=== PATIENT | male | born 1995 | race Caucasian/White ===

== ENCOUNTER 2017-06-09 10:08 | Emergency (ER) | payer OTHER ==
[~2017-06-09] VITALS: Ht 175.3 cm; Wt 63.5 kg
--- NOTE | 2017-06-09 10:44 | Urgent Treatment Center Report ---
History of Present Issue Date/Time Seen by Provider 06/09/17 1043 Visit Reason Pt arrived:Walked Presenting Problem:PT WAS TRYING TO PUT HIS DOG UP WHEN SHE BIT HIM MULTIPLE TIMES ON BOTH HIS HANDS Location if Accident: Onset of symptoms date/time:/ or onset unknown for:MEDICAL HX UNKNOWN Have you (or family members/close friends) recently traveled outside the [place]? N If Yes, where/when: Have you had exposure to infectious disease within the past month? TB? Other? Specify: c/o multiple dog bites to bilateral hands and FAs. occurred this morning, less then 1 hour before arrival. Reports he woke up to find his dog, an adult pit bull, had gotten out. He disciplined him w/ spanking and tried to put him up when he started to bite. Last tetanus less between 2-5 years ago d/t a laceration to left hand at that time. Pain currently 4/10. Hasn't taken or tried anything prior to arrival. Denies any limited ROM but reports tip of right index finger feels asleep and can't get a left FA wound to stop bleeding. Dog is NOT UTD on vaccines. Source patient Exam Limitations no limitations ALLERGIES Coded Allergies: No Known Allergies (06/09/17) History Medical History General CAD? No Angina: No PR: No Hypertension? No Hyperlipidemia? No CHF? No DVT? No PE? No COPD? No Asthma? No Anemia? No GERD? No Gastric ulcers? No GI Bleed? No Hernia? No Thyroid Problems? No Hypothyroidism? No CVA? No Seizures? No Diabetes? No Renal Insuffiency? No UTI? No Stones? No BPH? No GB Disease: No Nephritic Syndrome? No Asplenia? No Hepatitis? No Sickle Cell Disease? No Arthritis? No Migraines? No Cataracts? No Glaucoma? No MRSA? No HIV? No TB? No Anxiety? No Depression? No Cancer? No More? No Immunization HX DT/Tetanus 1-4 Years Ago Surgical Hx Previous Surgery?N Social History Smoking Hx Smoker: Never Smoker Tobacco: No Alcohol Alcohol: No Review of Systems All Other Systems Reviewed and Negative Constitutional denies chills, denies fever, denies malaise Musculoskeletal see HPI Skin see HPI, denies change in color Psychiatric/Neurological see HPI Physical Exam Vital Signs Vital Signs Date Time Temp Pulse Resp B/P Pulse O2 O2 Flow FiO2 Ox Delivery Rate 06/09 1343 98.4 85 16 113/74 98 06/09 1023 98.4 85 16 113/74 98 06/09 1015 98.4 85 16 113/74 98 General Appearance no apparent distress Respiratory Status No: respiratory distress. Cardiovascular no peripheral edema Peripheral Pulses Pulses normal Yes (radial bilaterally) Extremities normal range of motion (all 10 digits, jimi wrists), 34 puncture wounds jimi hands and FAs, see skin Neurologic alert, no motor/sensory deficits (+ sensatn/color/mvmt all digit) Skin 34 puncture wounds jimi hands/FAs, most all superficial w/o current bleeding unless noted otherwise. Right hand palmar side: one 4th digit, 3 3rd digit, 4 2nd digit, 4 base of thumb; right hand dorsal side: 3 5th digit, one 4th digit, two 3rd digit, one 2nd digit at base of nail/cuticle w/ approx 2mm surrounding ecchymosis w/o damage to nail, one thumb; no right FA or left hand palmar side wounds other than very superficial scratches w/o puncture to skin; left hand dorsal side: three on thumb, three at base of thumb, two at wrist, six to anterior forearm w/ most proximal one being the deepest w/ occasional bleeding. Medical Decision Making LABS/Meds/Orders Pt receiving controlled substance in ED? No Results/Orders Current Medication Orders Sig/[place] Start time Last Medication Dose Route Stop Time Status Admin Amoxicillin/ 1,000 MG ONCE ONE 06/09 1315 DC 06/09 Clavulanate Potassium PO 06/09 1316 1328 Amoxicillin/ 875 MG ONCE ONE 06/09 1245 CAN Clavulanate Potassium PO 06/09 1246 Acetaminophen 0 .STK-MED ONE 06/09 1106 DC PO Ibuprofen 0 .STK-MED ONE 06/09 1105 DC PO Acetaminophen 1,000 MG ONCE ONE 06/09 1100 DCr 06/09 PO 06/09 1101 1108 Ibuprofen 800 MG ONCE ONE 06/09 1100 DC 06/09 PO 06/09 1101 1108 XRAY/CT/US XRAY/CT/US XRAY forearm (left), hand (bilateral) XR interpretation by reviewed by me, discussed w/radiologist (read report) Xray Results read report Foreign body left forearm is not consistent w/ any current puncture wounds, or scratches Firm knot felt under skin in area of foreign body. pt reports current line of work results in splinters "that I never know I get". Enc to follow up with primary care. Consult MD Physician Consult 1 Consult/PCP Dr. Hutton, ER MD Time Called 1125 Reason Pt. Condition Comments Aware of HPI, exam and my concern w/ pt being seen and treated in [facility]. Agrees to come to ER and examine pt prior to making a decision about pt's further needs. 1145: Dr Hutton examined pt. Educated pt on ecchymosis, puncture wounds, soaking, irrigating, antibiotics, follow ups and NOT closing wounds. As long as xrays negative, ok to d/c with instructions to FU PCP tomorrow. Does not feel pt needs surgery consult. Physician Consult 2 Consult/PCP Guille [facility] Time Called 1315 Reason augmentin dosing, no 875mg available Comments Agrees w/ 1000mg first dose, w/ prescription for 875mg PO BID. Progress [facility] Progress Notes 1 Date 06/09/17 Time 1050 Comment Soaking and irrigating wounds sterile water and chlorhexidine [facility] Progress Notes 2 Date 06/09/17 Time 1246 Comment Iesha in xray aware to have radiologist go ahead and read films. She will notify him. Pt aware waiting for radiologist to read films. Denies any pain at this time. "I am just ready to go home". [facility] Progress Notes 3 Date 06/09/17 Time 1320 Comment Spoke to April at Dr. Neil's office re: wound follow up tomorrow. Pt w/ "billing issues" and he needs to call office to address. If billing issues are corrected, they will be able to see pt tomorrow but if not, they will not be able to. pt aware to follow up in [facility] if unable to see PCP. States + understanding. Procedures General/Other Procedure [facility] Procedure Note Date 06/09/17 Time 1050 - Soaking and irrigating all wounds jimi hands and FAs in sterile water and chlorhexidine Departure Departure Time of Disposition 1323 Disposition DC Home or Self Care(routine) Clinical Impression Primary Impression: Dog bite of right hand Qualifiers: Encounter type: initial encounter Qualified Code: S61.451A - Open bite of right hand, initial encounter Secondary Impressions: Dog bite of left arm Qualifiers: Encounter type: initial encounter Qualified Code: S41.152A - Open bite of left upper arm, initial encounter Dog bite of left hand Qualifiers: Encounter type: initial encounter Qualified Code: S61.452A - Open bite of left hand, initial encounter Condition STABLE Referrals Marcus Neil MD (Family) Call today to address billing issues. If they can not see you tomorrow, return to [facility] for wound follow up tomorrow Patient Instructions DI for Dog Bite Additional Instructions DO NOT close or cover wounds. Allow them to drain. Pat dry. Closing or preventing draining increases risk for infection. YOu are at a VERY HIGH RISK for infection. Take antibiotic as ordered. second dose tonight around 1am. Probiotic helps w/ GI side effects. Irrigated/wash w/ mild soap and water at least 2x/day. Follow up tomorrow extrememly important. Tylenol and ibuprofen helped in clinic with your pain. Continue tylenol 650- 1000mg every 6 hours as needed and ibuprofen 600-800mg every 6 hours as needed [facility] Counseled pt/family regarding diagnosis, test results, medications/RX, home care, follow up needs Prescriptions Current Visit Scripts Amoxicillin/Potassium Clav (Augmentin 875-125 Tablet) 1 EACH PO BID #19 TAB first dose in clinic at 5194
--- NOTE | 2017-06-09 10:44 | Urgent Treatment Center Report ---
History of Present Issue Date/Time Seen by Provider 06/09/17 1043 Visit Reason Pt arrived:Walked Presenting Problem:PT WAS TRYING TO PUT HIS DOG UP WHEN SHE BIT HIM MULTIPLE TIMES ON BOTH HIS HANDS Location if Accident: Onset of symptoms date/time:/ or onset unknown for:MEDICAL HX UNKNOWN Have you (or family members/close friends) recently traveled outside the [place]? N If Yes, where/when: Have you had exposure to infectious disease within the past month? TB? Other? Specify: c/o multiple dog bites to bilateral hands and FAs. occurred this morning, less then 1 hour before arrival. Reports he woke up to find his dog, an adult pit bull, had gotten out. He disciplined him w/ spanking and tried to put him up when he started to bite. Last tetanus less between 2-5 years ago d/t a laceration to left hand at that time. Pain currently 4/10. Hasn't taken or tried anything prior to arrival. Denies any limited ROM but reports tip of right index finger feels asleep and can't get a left FA wound to stop bleeding. Dog is NOT UTD on vaccines. Source patient Exam Limitations no limitations ALLERGIES Coded Allergies: No Known Allergies (06/09/17) History Medical History General CAD? No Angina: No IA: No Hypertension? No Hyperlipidemia? No CHF? No DVT? No PE? No COPD? No Asthma? No Anemia? No GERD? No Gastric ulcers? No GI Bleed? No Hernia? No Thyroid Problems? No Hypothyroidism? No CVA? No Seizures? No Diabetes? No Renal Insuffiency? No UTI? No Stones? No BPH? No GB Disease: No Nephritic Syndrome? No Asplenia? No Hepatitis? No Sickle Cell Disease? No Arthritis? No Migraines? No Cataracts? No Glaucoma? No MRSA? No HIV? No TB? No Anxiety? No Depression? No Cancer? No More? No Immunization HX DT/Tetanus 1-4 Years Ago Surgical Hx Previous Surgery?N Social History Smoking Hx Smoker: Never Smoker Tobacco: No Alcohol Alcohol: No Review of Systems All Other Systems Reviewed and Negative Constitutional denies chills, denies fever, denies malaise Musculoskeletal see HPI Skin see HPI, denies change in color Psychiatric/Neurological see HPI Physical Exam Vital Signs Vital Signs Date Time Temp Pulse Resp B/P Pulse O2 O2 Flow FiO2 Ox Delivery Rate 06/09 1343 98.4 85 16 113/74 98 06/09 1023 98.4 85 16 113/74 98 06/09 1015 98.4 85 16 113/74 98 General Appearance no apparent distress Respiratory Status No: respiratory distress. Cardiovascular no peripheral edema Peripheral Pulses Pulses normal Yes (radial bilaterally) Extremities normal range of motion (all 10 digits, jimi wrists), 34 puncture wounds jimi hands and FAs, see skin Neurologic alert, no motor/sensory deficits (+ sensatn/color/mvmt all digit) Skin 34 puncture wounds jimi hands/FAs, most all superficial w/o current bleeding unless noted otherwise. Right hand palmar side: one 4th digit, 3 3rd digit, 4 2nd digit, 4 base of thumb; right hand dorsal side: 3 5th digit, one 4th digit, two 3rd digit, one 2nd digit at base of nail/cuticle w/ approx 2mm surrounding ecchymosis w/o damage to nail, one thumb; no right FA or left hand palmar side wounds other than very superficial scratches w/o puncture to skin; left hand dorsal side: three on thumb, three at base of thumb, two at wrist, six to anterior forearm w/ most proximal one being the deepest w/ occasional bleeding. Medical Decision Making LABS/Meds/Orders Pt receiving controlled substance in ED? No Results/Orders Current Medication Orders Sig/[place] Start time Last Medication Dose Route Stop Time Status Admin Amoxicillin/ 1,000 MG ONCE ONE 06/09 1315 DC 06/09 Clavulanate Potassium PO 06/09 1316 1328 Amoxicillin/ 875 MG ONCE ONE 06/09 1245 CAN Clavulanate Potassium PO 06/09 1246 Acetaminophen 0 .STK-MED ONE 06/09 1106 DC PO Ibuprofen 0 .STK-MED ONE 06/09 1105 DC PO Acetaminophen 1,000 MG ONCE ONE 06/09 1100 DCr 06/09 PO 06/09 1101 1108 Ibuprofen 800 MG ONCE ONE 06/09 1100 DC 06/09 PO 06/09 1101 1108 XRAY/CT/US XRAY/CT/US XRAY forearm (left), hand (bilateral) XR interpretation by reviewed by me, discussed w/radiologist (read report) Xray Results read report Foreign body left forearm is not consistent w/ any current puncture wounds, or scratches Firm knot felt under skin in area of foreign body. pt reports current line of work results in splinters "that I never know I get". Enc to follow up with primary care. Consult MD Physician Consult 1 Consult/PCP Dr. Hutton, ER MD Time Called 1125 Reason Pt. Condition Comments Aware of HPI, exam and my concern w/ pt being seen and treated in [facility]. Agrees to come to ER and examine pt prior to making a decision about pt's further needs. 1145: Dr Hutton examined pt. Educated pt on ecchymosis, puncture wounds, soaking, irrigating, antibiotics, follow ups and NOT closing wounds. As long as xrays negative, ok to d/c with instructions to FU PCP tomorrow. Does not feel pt needs surgery consult. Physician Consult 2 Consult/PCP Guille [facility] Time Called 1315 Reason augmentin dosing, no 875mg available Comments Agrees w/ 1000mg first dose, w/ prescription for 875mg PO BID. Progress [facility] Progress Notes 1 Date 06/09/17 Time 1050 Comment Soaking and irrigating wounds sterile water and chlorhexidine [facility] Progress Notes 2 Date 06/09/17 Time 1246 Comment Iesha in xray aware to have radiologist go ahead and read films. She will notify him. Pt aware waiting for radiologist to read films. Denies any pain at this time. "I am just ready to go home". [facility] Progress Notes 3 Date 06/09/17 Time 1320 Comment Spoke to April at Dr. Neil's office re: wound follow up tomorrow. Pt w/ "billing issues" and he needs to call office to address. If billing issues are corrected, they will be able to see pt tomorrow but if not, they will not be able to. pt aware to follow up in [facility] if unable to see PCP. States + understanding. Procedures General/Other Procedure [facility] Procedure Note Date 06/09/17 Time 1050 - Soaking and irrigating all wounds jimi hands and FAs in sterile water and chlorhexidine Departure Departure Time of Disposition 1323 Disposition DC Home or Self Care(routine) Clinical Impression Primary Impression: Dog bite of right hand Qualifiers: Encounter type: initial encounter Qualified Code: S61.451A - Open bite of right hand, initial encounter Secondary Impressions: Dog bite of left arm Qualifiers: Encounter type: initial encounter Qualified Code: S41.152A - Open bite of left upper arm, initial encounter Dog bite of left hand Qualifiers: Encounter type: initial encounter Qualified Code: S61.452A - Open bite of left hand, initial encounter Condition STABLE Referrals Marcus Neil MD (Family) Call today to address billing issues. If they can not see you tomorrow, return to [facility] for wound follow up tomorrow Patient Instructions DI for Dog Bite Additional Instructions DO NOT close or cover wounds. Allow them to drain. Pat dry. Closing or preventing draining increases risk for infection. YOu are at a VERY HIGH RISK for infection. Take antibiotic as ordered. second dose tonight around 1am. Probiotic helps w/ GI side effects. Irrigated/wash w/ mild soap and water at least 2x/day. Follow up tomorrow extrememly important. Tylenol and ibuprofen helped in clinic with your pain. Continue tylenol 650- 1000mg every 6 hours as needed and ibuprofen 600-800mg every 6 hours as needed [facility] Counseled pt/family regarding diagnosis, test results, medications/RX, home care, follow up needs Prescriptions Current Visit Scripts Amoxicillin/Potassium Clav (Augmentin 875-125 Tablet) 1 EACH PO BID #19 TAB first dose in clinic at 0209
--- NOTE | 2017-06-09 13:03 | RADIOLOGY REPORT PS360 ---
HAND-LT-3 VIEWS HISTORY: Pain, laceration, dog bite BITTEN BY HIS DOG ORDERING PHYSICIAN: EMILIANO JARA APRN PATIENT AGE: 21 years COMPARISON: None FINDINGS: No fracture or dislocation. No lytic or blastic change. There is normal mineralization. The joint spaces are well-preserved. No significant degenerative/arthritic changes. No erosive changes evident. No radio opaque foreign body IMPRESSION: Negative, no acute finding
--- NOTE | 2017-06-09 13:04 | RADIOLOGY REPORT PS360 ---
HAND-RT 3 VIEWS HISTORY: Pain, laceration, dog bite BITTEN BY HIS DOG ORDERING PHYSICIAN: EMILIANO JARA APRN PATIENT AGE: 21 years COMPARISON: None FINDINGS: No fracture or dislocation. No lytic or blastic change. There is normal mineralization. The joint spaces are well-preserved. No significant degenerative/arthritic changes. No erosive changes evident. No radio opaque foreign body. Soft tissue gas is present in the hyperthenar eminence IMPRESSION: Soft tissue gas otherwise negative
--- NOTE | 2017-06-09 13:06 | RADIOLOGY REPORT PS360 ---
FOREARM-LT CLINICAL INDICATION: Laceration, pain BITTEN BY HIS DOG ORDERING PHYSICIAN: EMILIANO JARA APRN PATIENT AGE: 21 years COMPARISON: None FINDINGS: No fracture or dislocation. There is a thin linear opacity noted over the anterior and ulnar aspect of the mid aspect of the forearm. This measures approximately 4 mm consistent with a foreign body either upon or within the soft tissues.. No obvious soft tissue gas. IMPRESSION: 1. No acute bony pathology. 2. Foreign body along the mid forearm anteriorly and medially
[2017-06-09 13:43] VITALS: BP 113/74
--- OUTSIDE RECORDS SUMMARY | 2017-07-02 03:11 | External Medical Summary Rpt ---
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
--- OUTSIDE RECORDS SUMMARY | 2017-07-02 03:11 | External Medical Summary Rpt ---
Author Author , KRISTEN PETERSON Address Unknown Phone [email or web address] Immunization Name Date Rout CVX Reac Dose Comm Prov Is Faci e tion ent ider Refu lity Give sed n MMR - 3 999 Hist H149 No H149 02-07 oric 97 al Info rmat ion - Sour ce Unsp ecif ied DTaP 08-22 107 999 Hist H149 No H149 , UF 02-07 oric 97 al Info rmat ion - Sour ce Unsp ecif ied Jose Ramon 08-22 2 999 Hist H149 No H149 o-OP 02-07 oric V 97 al Info rmat ion - Sour ce Unsp ecif ied
--- OUTSIDE RECORDS SUMMARY | 2017-07-02 03:11 | External Medical Summary Rpt ---
Author Author , KRISTEN PETERSON Address Unknown Phone [email or web address] Immunization Name Date Rout CVX Reac Dose [...]
--- OUTSIDE RECORDS SUMMARY | 2017-07-02 03:11 | External Medical Summary Rpt ---
Author Author , KRISTEN PETERSON Address Unknown Phone [email or web address] Care Team Providers Care Technical Research Scientist Name Role Phone [facility] Unavailable Unavailable [facility] Purpose Continuity of Care Document - 08-25-2008 [...]
--- OUTSIDE RECORDS SUMMARY | 2017-07-02 03:11 | External Medical Summary Rpt ---
Author Author , KRISTEN PETERSON Address Unknown Phone [email or web address] Care Team Providers Care Animal Killer Name Role Phone [facility] Unavailable Unavailable [facility] Purpose Continuity of Care Document - [...]
--- OUTSIDE RECORDS SUMMARY | 2017-07-02 03:11 | External Medical Summary Rpt ---
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 Purpose Continuity of Care Document [...]
== END 2017-06-09 13:43 | disposition home or self-care (01) ==
LOC: ER 10:08 → UTC 10:21 → ER 10:21 → UTC 13:43
DX: S61.451A Open bite of right hand, initial encounter (principal); S61.452A Open bite of left hand, initial encounter; S41.152A Open bite of left upper arm, initial encounter; W54.0XXA Bitten by dog, initial encounter; Y93.89 Activity, other specified; Y92.009 Unspecified place in unspecified non-institutional (private) residence as the place of occurrence of the external cause